=== PATIENT | male | born 1955 | race Caucasian/White ===

== ENCOUNTER → 2020-06-12 | Outpatient (CLI) | payer OTHER, MEDICARE ==
--- NOTE | 2020-06-12 09:05 | XR ---
EXAMINATION TYPE: XR lumbar spine 2 or 3V DATE OF EXAM: 06/12/2020 CLINICAL HISTORY: Pain for a few months. Low back pain. TECHNIQUE: Frontal and lateral images of the lumbar spine are obtained. COMPARISON: None FINDINGS: There are 5 lumbar type vertebral bodies identified. The lumbar spine shows slight dextro convex scoliotic curvature centered at L3 level. There is grade 1 anterolisthesis L4 on L5. Vertebral body heights and disc space heights are maintained. Multilevel facet arthropathy greatest in the mid to lower lumbar spine is present. Moderate vascular calcification overlying abdominal aorta. IMPRESSION: As above.
== END | disposition home or self-care (01) ==
LOC: RADXRMAIN 08:30
PROVIDERS: ATTEND Internal Medicine
DX: M43.16 Spondylolisthesis, lumbar region (principal); M47.816 Spondylosis without myelopathy or radiculopathy, lumbar region; M41.86 Other forms of scoliosis, lumbar region
CPT/HCPCS: 72100

== ENCOUNTER → 2020-12-11 | Outpatient (CLI) | payer OTHER, MEDICARE ==
--- NOTE | 2020-12-11 14:38 | XR ---
EXAMINATION TYPE: XR elbow complete LT DATE OF EXAM: 12/11/2020 CLINICAL HISTORY: pain TECHNIQUE: Frontal, lateral and oblique images of the left elbow are obtained. COMPARISON: None. FINDINGS: There is no acute fracture/dislocation evident of the elbow. Prominent anterior fat pad as well as the posterior fat pad. On one of the images there is linear lucency traversing the radial he ad. Nondisplaced fracture is difficult to exclude. This is not confirmed on additional images seen. T he overlying soft tissue appears unremarkable. Calcification medial collateral ligament. IMPRESSION: On one of the images there is linear lucency traversing the radial head. Nondisplaced fracture is dif ficult to exclude. This is not confirmed on additional images seen.
== END | disposition home or self-care (01) ==
LOC: RADXRMAIN 14:04
PROVIDERS: ATTEND Internal Medicine
DX: M70.32 Other bursitis of elbow, left elbow (principal)

== ENCOUNTER → 2023-08-27 | Outpatient (CLI) | payer OTHER, MEDICARE ==
[2023-08-27 16:30] LABS: Blood Urea Nitrogen 19.2 mg/dL (9.0-27.0); Calcium 9.7 mg/dL (8.7-10.3); Carbon Dioxide 21.8 mmol/L (21.6-31.8); Chloride 103 mmol/L (96-109); Glucose 123 mg/dL (70-110); Magnesium 1.9 mg/dL (1.5-2.4); Potassium 4.5 mmol/L (3.5-5.5); Sodium 136 mmol/L (135-145)
== END | disposition home or self-care (01) ==
LOC: LABWHC1 08:52
PROVIDERS: ATTEND Internal Medicine Clinical Cardiac Electrophysiology
DX: I10 Essential (primary) hypertension (principal)
CPT/HCPCS: 36415; 80048; 83735